=== PATIENT | male | born 1955 | race Caucasian/White ===

== ENCOUNTER 2018-03-05 11:37 | Emergency (ER) | payer BC ==
[2018-03-05] MEDS ORDERED: LIDOCAINE 1% INJ-PF (10 MG/ML) 30 ML SDV INJ ONE (11:49)
[2018-03-05] MEDS ORDERED: PREDNISONE 20 MG TABLET PO ONE (11:51)
--- NOTE | 2018-03-05 11:53 | ER Document Report ---
ED General - General Chief Complaint: Allergic Reaction Stated Complaint: POSSIBLE ALLERGIC REACTION Time Seen by Provider: 03/05/18 11:40 Notes: Patient is a 62-year-old male presents to the emergency department for chief complaint of allergic reaction, and fire ant bites. Patient states that about an hour prior to ED arrival, he was cleaning up some yard work, and was bitten by multiple ants, he states that innumerable ants bit him on his hands, and feet. He stated he had itching and pain in his hands, he decided to come home and take a shower, and as he was walking to the bathroom, he tripped, and passed out and hit his face on the floor. This was a brief moment of loss of consciousness, his called EMS and upon arrival the patient was noted to be hypertensive, he was given IM epinephrine, and Benadryl, the patient was able to ambulate at that point, and he was brought to the emergency department. The patient states he is feeling much better now, the rash he did have over his entire body is much improved, he denies having any lightheadedness, itching or chest pain, nausea or vomiting at this time. He is up-to-date with his tetanus vaccination. He does report having being bitten by an ant in the past, the cause a local reaction, no prior history of anaphylaxis. - Related Data Allergies/Adverse Reactions: No Known Allergies Allergy (Verified 03/05/18 11:44) Past Medical History - General Information source: Patient - Social History Smoking Status: Never Smoker Frequency of alcohol use: Occasional Drug Abuse: None Lives with: Family Family History: Reviewed & Not Pertinent - Medical History Notes: Denies chronic medical conditions Surgical Hx: Other - Reviewed and noncontributory Review of Systems - Review of Systems Notes: REVIEW OF SYSTEMS: CONSTITUTIONAL : Denies fever, chills, or sweats. Denies recent illness. EENT: Denies eye, ear, throat, or mouth pain or symptoms. Denies nasal or sinus congestion. CARDIOVASCULAR: Denies chest pain. RESPIRATORY: Denies cough, cold, or chest congestion. Denies shortness of breath, difficulty breathing, or wheezing. GASTROINTESTINAL: Denies abdominal pain. Denies vomiting, or diarrhea. Denies constipation. Positive for nausea GENITOURINARY: Denies difficulty urinating, painful urination, burning, frequency, or blood in urine. MUSCULOSKELETAL: Denies neck or back pain or joint pain or swelling. SKIN: Positive for rash, and skin laceration to the face HEMATOLOGIC : Denies easy bruising or bleeding. LYMPHATIC: Denies swollen, enlarged glands. NEUROLOGICAL: Positive for headedness and syncope. Denies headache. Denies weakness or paralysis or loss of use of either side. Denies problems with gait or speech. Denies sensory or motor loss. PSYCHIATRIC: Denies anxiety or stress or depression. ALL OTHER SYSTEMS REVIEWED AND NEGATIVE. Physical Exam - Vital signs Vitals: Resp Pulse Ox 17 100 03/05/18 11:44 03/05/18 11:44 - Notes Notes: PHYSICAL EXAMINATION: GENERAL: Well-appearing, well-nourished and in no acute distress. HEAD: normocephalic, there is a 2.6 cm laceration to the left upper lip, does not cross the vermilion border. Slight using of blood. EYES: Pupils equal round and reactive to light, extraocular movements intact, sclera anicteric, conjunctiva are normal. ENT: nares patent, oropharynx clear without exudates. Moist mucous membranes. NECK: Normal range of motion, supple without lymphadenopathy LUNGS: Breath sounds clear to auscultation bilaterally and equal. No wheezes rales or rhonchi. HEART: Regular rate and rhythm without murmurs ABDOMEN: Soft, nontender, normoactive bowel sounds. No guarding, no rebound. No masses appreciated. EXTREMITIES: Normal range of motion, no pitting or edema. No cyanosis. NEUROLOGICAL: No focal neurological deficits. Moves all extremities spontaneously and on command. PSYCH: Normal mood, normal affect. SKIN: Warm, Dry, normal turgor, diffuse erythematous rash noted across the skin , improving per patient Course - Re-evaluation Re-evalutation: 03/05/18 11:45 Patient seen and examined, vital signs reviewed. Patient received epinephrine via EMS, as well as oral Benadryl, he was feeling much better, he was reportedly hypotensive initially, but now he is normotensive, he states that the itching has resolved, his breathing is easy, denies having any wheezing or cough at this time. Denies having any shortness of breath. Patient will be given prednisone 40 mg in the ED, he does have a laceration to his face which will be repaired, he will be monitored after receiving IM epinephrine, and I will discharge the patient home with an EpiPen prescription. Patient advised to follow-up in 5 days for suture removal, and prescribed 20 mg of prednisone daily for 4 days. - Vital Signs Vital signs: Temp Pulse Resp BP Pulse Ox 21 H 131/83 H 98 03/05/18 13:01 03/05/18 13:01 03/05/18 13:01 - EKG Interpretation by Me Additional EKG results interpreted by me: 03/05/18 13:24 EKG demonstrates normal sinus rhythm with a ventricular rate of 69 bpm, left axis deviation, normal intervals, no evidence of acute ischemia on this EKG. Procedures - Laceration/Wound Repair Left Face Wound length (cm): 2.6 Wound's Depth, Shape: Linear Laceration pre-procedure: Sterile PPE donned, Chloraprep applied, Sterile drapes applied, Shur-Clens applied Anesthetic type: 1% Lidocaine Volume Anesthetic (mLs): 2 Wound explored: Clean, No foreign body removed Wound Repaired With: Sutures Suture Size/Type: 5:0, Prolene Number of Sutures: 5 Layer Closure?: No Complications: No Notes: 03/05/18 15:28 Patient tolerated the procedure well, with no complication. Critical Care Note - Critical Care Note Total time excluding time spent on procedures (mins): 35 Comments: Critical care time 35 minutes exclusive from separate billable procedures for patient in acute anaphylaxis, requiring IM epinephrine received by squad, and continue cardiac monitoring. With high complex medical decision making, and high potential for clinical deterioration, from a cardiovascular neurological standpoint. Discharge - Discharge Clinical Impression: Anaphylaxis Qualifiers: Encounter type: initial encounter Qualified Code(s): T78.2XXA - Anaphylactic shock, unspecified, initial encounter Facial laceration Qualifiers: Encounter type: initial encounter Qualified Code(s): S01.81XA - Laceration without foreign body of other part of head, initial encounter Condition: Good Disposition: HOME, SELF-CARE Instructions: Anaphylaxis Kit ([facility]) Additional Instructions: Please follow-up in 5 days to have your sutures removed, please monitor for signs of lightheadedness, dizziness or worsening symptoms, to please return to the emergency department if you experience any of these. Monitor for signs of infection to your laceration to your lip, if you notice redness, swelling or drainage, please return to the emergency department to have this evaluated. Prescriptions: Epinephrine [Epipen] 0.3 mg IM ONCE PRN #1 auto.injct PRN Reason: Prednisone [Deltasone 20 mg Tablet] 1 tab PO DAILY 4 Days #4 tablet
[2018-03-05 13:26] VITALS: BP 131/83
--- NOTE | 2018-03-05 17:54 | EKG REPORT ---
SEVERITY:- ABNORMAL ECG - SINUS RHYTHM LEFT ANTERIOR FASCICULAR BLOCK : Confirmed by: Jhon Hanna MD 05-Mar-2018 17:53:24
== END 2018-03-05 13:50 | disposition home or self-care (01) ==
LOC: ER 11:37
PROC: 0HQ1XZZ Repair Face Skin, External Approach (ICD-10-PCS; principal; 2018-03-05)
DX: S01.81XA Laceration without foreign body of other part of head, initial encounter (principal); T78.2XXA Anaphylactic shock, unspecified, initial encounter; T63.421A Toxic effect of venom of ants, accidental (unintentional), initial encounter; I10 Essential (primary) hypertension; R21 Rash and other nonspecific skin eruption; R55 Syncope and collapse; W19.XXXA Unspecified fall, initial encounter; Y92.009 Unspecified place in unspecified non-institutional (private) residence as the place of occurrence of the external cause
CPT/HCPCS: 12013; 93005; 99285; 93010; J3490; J7512